=== PATIENT | male | born 1965 | race Caucasian/White ===

== ENCOUNTER 2016-12-21 10:44 | Outpatient (CLI) | payer MEDICAID ==
[~2016-12-21] VITALS: Ht 177.8 cm; Wt 102.5 kg
[2016-12-21] MEDS ORDERED: TRIAMCINOLONE ACET (KENALOG-40) 40 MG/ML 1 ML VIAL ONE (11:35)
[2016-12-21] MEDS ORDERED: LIDOCAINE 1% INJ 20 ML (XYLOCAINE) VIAL ONE (11:36)
[2016-12-21] MEDS ORDERED: BUPIVACAINE 0.25% 30 ML (SENSORCAINE) VIAL ONE (11:36)
[2016-12-21 11:47] VITALS: BP 156/98
[2016-12-21 12:21] VITALS: BP 155/95
--- NOTE | 2016-12-21 13:09 | Pain Medicine-Procedure ---
Procedure Pre-Op/Post-Op Diagnosis Diagnosis: disc disorder with radiculopathy, lumbar Indications for Operation low back pain Attending Surgeon Primo Procedure Date of Service: December 21, 2016 Procedure: Lumbar Epidural Steroid Injection at the L5-S1 level under Fluoroscopic Guidance Procedure: Patient was identified in the holding area. After risks, benefits, and alternatives were discussed with the patient, informed consent was obtained. Patient was brought to the fluoroscopy suite and placed prone on the procedure room table. A time out was performed. Vital signs were monitored throughout the procedure. The patients low back was prepped and draped in the usual sterile fashion. The patients skin was anesthetized using 2% Lidocaine. A Tuohy needle was inserted and advanced to the L5-S1 epidural space under fluoroscopic guidance using the loss of resistance technique and intermittent projection of fluoroscopy. There was no paresthesia with needle placement. The needle position was confirmed in both the AP and lateral view. After negative aspiration 2ml of contrast was injected under live fluoroscopy which showed good spread of the contrast in the epidural space at the appropriate level, there was no intravascular or subarachnoid spread. Again, after negative aspiration for heme or CSF, 2 ml of 0.25% Bupivicaine, 2ml of preservative free normal saline, and 80mg of Kenalog was injected. The needle was removed and a sterile bandage was placed and the patient was transferred to the recovery area in stable condition. After a brief period of observation, patient was discharged to home with no new neurological deficits and no apparent complications. Complications None ALFREDITO SOFIA MD December 21, 2016 1:09 pm
== END 2016-12-21 12:25 | disposition home or self-care (01) ==
LOC: CARD 10:44
PROVIDERS: ATTEND Pain Medicine Pain Medicine
DX: M51.16 Intervertebral disc disorders with radiculopathy, lumbar region (principal)
CPT/HCPCS: 62323

== ENCOUNTER → 2017-10-31 | Outpatient (CLI) | payer MEDICAID ==
[~2017-10-31] VITALS: Ht 179.1 cm; Wt 98.9 kg
[~2017-10-31] MED LIST: methylPREDNISolone 80 MG/ML (DEPO MEDROL) VIAL ONE
[2017-10-31 13:49] VITALS: BP 148/99
== END ==
LOC: CARD 13:33
PROVIDERS: ATTEND Pain Medicine Interventional Pain Medicine
DX: M54.16 Radiculopathy, lumbar region (principal); M54.12 Radiculopathy, cervical region; M47.812 Spondylosis without myelopathy or radiculopathy, cervical region
CPT/HCPCS: 62323

== ENCOUNTER 2019-05-11 11:49 | Inpatient (IN) | payer BC, MEDICAID ==
[~2019-05-11] VITALS: Ht 177.8 cm; Wt 94.0 kg
[2019-05-11] MEDS ORDERED: DILTIAZEM 25 MG/5 ML INJ (CARDIZEM) VIAL ONE (11:59)
[2019-05-11] MEDS ORDERED: NS IV 1000 ML 1,000 ML IV SCH (12:04)
[2019-05-11 12:15] LABS: BASOPHILS % (AUTO) 0 % (0-10); EOSINOPHILS # (AUTO) 0.1 10^3/uL (0.0-0.3); EOSINOPHILS % (AUTO) 1 % (0-10); HEMATOCRIT 45 % (40-54); HEMOGLOBIN 15.8 G/DL (13.3-17.7); LYMPHOCYTES # (AUTO) 1.7 X 10^3 (1.0-4.0); LYMPHOCYTES % (AUTO) 23 % (12-44); MEAN CORPUSCULAR HEMOGLOBIN 30 PG (25-34); MEAN CORPUSCULAR HGB CONC 35 G/DL (32-36); MEAN CORPUSCULAR VOLUME 87 FL (80-99); MEAN PLATELET VOLUME 10.1 FL (7.4-10.4); MONOCYTES # (AUTO) 0.7 X 10^3 (0.0-1.0); MONOCYTES % (AUTO) 9 % (0-12); NEUTROPHILS # (AUTO) 4.9 X 10^3 (1.8-7.8); NEUTROPHILS % (AUTO) 66 % (42-75); PLATELET COUNT 265 10^3/uL (130-400); RED CELL DISTRIBUTION WIDTH 13.5 % (10.0-14.5); WHITE BLOOD COUNT 7.4 10^3/uL (4.3-11.0)
[2019-05-11] MEDS ORDERED: DILTIAZEM 25 MG/5 ML INJ (CARDIZEM) VIAL IVP ONE (12:15)
--- NOTE | 2019-05-11 12:17 | ED Cardiac General ---
History of Present Illness General Chief Complaint: Cardiac/General Problems Stated Complaint: HEART RACING History of Present Illness Date Seen by Provider: May 11, 2019 Time Seen by Provider: 11:45 Initial Comments 53-year-old male reports heart racing since 05/07/19. He was seen by primary care provider Dr. Brownlee and sent to the emergency department today. He has a history of SVT requiring cardioversion approximately once a year for the last 2 years. He has a history of atrial fibrillation which was treated with ablation approximately 13 years ago. He does not see a peanut salter regularly. In October 2017, he was treated with Adenosine twice and had no change in SVT, he then was given Cardizem bolus, followed by Cardizem drip. Denies chest pain, pressure, nausea or vomiting. He has been continuing to work with the palpitations, construction. He has noted mild fatigue but no other complaints. His only medication is Cardizem 360 mg and aspirin 81 mg, which he did take this morning. Timing/Duration: 3-4 days Severity: moderate Location: central Activities at Onset: none ASA po RESEARCH AND DEVELOPMENT MANAGER: Yes (this am 81 mg. ) Associated Systoms: Denies Symptoms Allergies and Home Medications Allergies Coded Allergies: No Known Drug Allergies (Unverified , 05/11/19) Patient Home Medication List Home Medication List Reviewed: Yes Review of Systems Review of Systems Constitutional: no symptoms reported, see HPI Cardiovascular: See HPI; Denies Chest Pain, Denies Edema; Irregular Heart Rate; Denies Lightheadedness; Palpitations; Denies Syncope Gastrointestinal: See HPI; Denies Nausea, Denies Vomiting Skin: no symptoms reported, see HPI All Other Systems Reviewed Negative Unless Noted: Yes Past Zdgcegr-Ljasuy-Jpzkta Hx Past Med/Social Hx: Reviewed Nursing Past Med/Soc Hx Physical Exam Vital Signs Vital Signs - First Documented 05/11/19 12:00 Temp 37.0 Pulse 152 Resp 12 B/P (MAP) 136/98 (111) Pulse Ox 97 Capillary Refill : Height, Weight, BMI Height: 5'10.50" Weight: 218lbs. 0.0oz. [id number]; 30.8 BMI Method: General Appearance: No Apparent Distress, WD/WN HEENT: PERRL/EOMI, TMs Normal, Normal ENT Inspection, Pharynx Normal Neck: Full Range of Motion, Normal Inspection, Non Tender, Supple Respiratory: Chest Non Tender, Lungs Clear, Normal Breath Sounds Cardiovascular: No Edema, No JVD, No Murmur, Normal Peripheral Pulses, Tachycardia Gastrointestinal: Normal Bowel Sounds, Non Tender, Soft Neurologic/Psychiatric: Alert, Oriented x3, No Motor/Sensory Deficits, Normal Mood/Affect Skin: Normal Color, Warm/Dry Lymphatic: No Adenopathy Progress/Results/Core Measures Results/Orders Lab Results Laboratory Tests Test 05/11/19 12:06 Range/Units White Blood Count 7.4 4.3-11.0 10^3/uL Red Blood Count 5.19 4.35-5.85 10^6/uL Hemoglobin 15.8 13.3-17.7 G/DL Hematocrit 45 40-54 % Mean Corpuscular Volume 87 80-99 FL Mean Corpuscular Hemoglobin 30 25-34 PG Mean Corpuscular Hemoglobin Concent 35 32-36 G/DL Red Cell Distribution Width 13.5 10.0-14.5 % Platelet Count 265 130-400 10^3/uL Mean Platelet Volume 10.1 7.4-10.4 FL Neutrophils (%) (Auto) 66 42-75 % Lymphocytes (%) (Auto) 23 12-44 % Monocytes (%) (Auto) 9 0-12 % Eosinophils (%) (Auto) 1 0-10 % Basophils (%) (Auto) 0 0-10 % Neutrophils # (Auto) 4.9 1.8-7.8 X 10^3 Lymphocytes # (Auto) 1.7 1.0-4.0 X 10^3 Monocytes # (Auto) 0.7 0.0-1.0 X 10^3 Eosinophils # (Auto) 0.1 0.0-0.3 10^3/uL Basophils # (Auto) 0.0 0.0-0.1 10^3/uL Prothrombin Time 14.0 12.2-14.7 SEC INR Comment 1.0 0.8-1.4 Activated Partial Thromboplast Time 27 24-35 SEC Sodium Level 141 135-145 MMOL/L Potassium Level 4.0 3.6-5.0 MMOL/L Chloride Level 106 98-107 MMOL/L Carbon Dioxide Level 25 21-32 MMOL/L Anion Gap 10 5-14 MMOL/L Blood Urea Nitrogen 16 7-18 MG/DL Creatinine 0.80 0.60-1.30 MG/DL Estimat Glomerular Filtration Rate > 60 BUN/Creatinine Ratio 20 Glucose Level 144 H 70-105 MG/DL Calcium Level 9.6 8.5-10.1 MG/DL Corrected Calcium 9.4 8.5-10.1 MG/DL Total Bilirubin 0.5 0.1-1.0 MG/DL Aspartate Amino Transf (AST/SGOT) 34 5-34 U/L Alanine Aminotransferase (ALT/SGPT) 50 0-55 U/L Alkaline Phosphatase 83 40-136 U/L Troponin I < 0.028 <0.028 NG/ML Total Protein 8.1 6.4-8.2 GM/DL Albumin 4.3 3.2-4.5 GM/DL My Orders Orders - JALIL RAMOS Diltiazem Injection (Cardizem Injection) (05/11/19 11:59) Cbc With Automated Diff (05/11/19 12:03) Comprehensive Metabolic Panel (05/11/19 12:03) Protime With Inr (05/11/19 12:03) Partial Thromboplastin Time (05/11/19 12:03) Troponin I (05/11/19 12:03) Diltiazem Injection (Cardizem Injection) (05/11/19 12:15) Ed Iv/Invasive Line Start (05/11/19 12:04) Ns Iv 1000 Ml (Sodium Chloride 0.9%) (05/11/19 12:04) Ekg Tracing (05/11/19 12:04) Continuous Ekg Monitoring (05/11/19 12:04) Ekg Tracing (05/11/19 12:31) Medications Given in ED Current Medications Medications Dose Ordered Sig/Lily Route Start Time Stop Time Status Last Admin Dose Admin Diltiazem HCl 10 mg ONCE ONCE IVP 05/11/19 12:15 05/11/19 12:16 DC 05/11/19 12:12 10 MG Vital Signs/I&O 05/11/19 12:00 Temp 37.0 Pulse 152 Resp 12 B/P (MAP) 136/98 (111) Pulse Ox 97 Progress Progress Note : Time: 11:45 Progress Note Patient seen and evaluated, reviewed admission from [facility] 10/2017. Will obtain EKG, Labs, IV Access and plan Cardizem 10 mg IV, then re-evaluate. 1200 within 7 min of Cardizem 10 mg IV, patient converted to Sinus rhythm at 60- 80. 1230 patient is continuing in sinus rhythm, no palpitations. [address] Posada, agreed with recommendation for admission, will get echocardiogram before starting anticoagulants. Discussed EKG, initial pre sentation EKG showed wide-complex tachycardia. 1315 patient continuing in sinus rhythm, he agreed with recommendation for admis salma. Will continue to monitor. 1330 patient admitted to cardiac stepdown, no further SVT or atrial flutter. Patient denies any complaints. Initial ECG Impression Date: May 11, 2019 Initial ECG Impression Time: 11:51 Initial ECG Rate: 152 Initial ECG Rhythm: S.Tach, SVT Initial ECG Intervals: Normal Initial ECG Intervals QRS 140, QT 348, QTC 554. Garibaldi P 0, QRS -50, T 110. Initial ECG Impression: Normal, SVT Initial ECG Comparisson: Unchanged Comment Reviewed with Dr. Barrios, agreed with interpretation EKG : EKG Time: 12:43 Rate: 63 Rhythm: Normal Sinus Intervals: Normal Intervals ND 184, QRSD 98, QT 444, QTc 455. Garibaldi P 34, QRS -3, T 4. ECG Comparisson: Changed ECG Impression: Normal Comment Reviewed with Dr. Posada Departure Impression Primary Impression: SVT (supraventricular tachycardia) Disposition: 09 ADMITTED INPATIENT Condition: Stable Admissions Decision to Admit Reason: Admit from ER (General) Decision to Admit/Date: May 11, 2019 Time/Decision to Admit Time: 13:15 Departure-Patient Inst. Referrals: JOHN BROWNLEE MD (PCP/Family) Primary Care Physician Copy Copies To 1: JOHN BROWNLEE MD, AMY ARNP May 11, 2019 12:17
[2019-05-11 12:35] LABS: ALANINE AMINOTRANSFERASE 50 U/L (0-55); ALBUMIN 4.3 GM/DL (3.2-4.5); ALKALINE PHOSPHATASE 83 U/L (40-136); BILIRUBIN,TOTAL 0.5 MG/DL (0.1-1.0); BUN/CREATININE RATIO 20; CALCIUM 9.6 MG/DL (8.5-10.1); CARBON DIOXIDE 25 MMOL/L (21-32); CHLORIDE 106 MMOL/L (98-107); GFR ESTIMATED > 60; GLUCOSE 144 MG/DL (70-105); SODIUM 141 MMOL/L (135-145); TOTAL PROTEIN 8.1 GM/DL (6.4-8.2)
--- NOTE | 2019-05-11 14:08 | NUR ---
PT ARRIVED AND PLACED ON TELEMETRY. VITALS ARE OBTAINED. PT IS AMBULATORY IN THE ROOM. SUSTAINABILITY PROJECT COORDINATOR SHOWS NSR IN THE 60-70'S. PT STATES THAT HE CAN FEEL WHEN HIS HEART RATE IS HIGH IN HIS THROAT/UPPER CHEST AREA AND SOMETIMES GETS DIZZY. STATES THIS STARTED ON SATURDAY OF LAST WEEK. PT DENIES ANY CONCERNS AT THIS TIME.
[2019-05-11] MEDS ORDERED: NS IV 1000 ML 1,000 ML ONE (14:17)
[2019-05-11 14:31] VITALS: BP 130/83
--- NOTE | 2019-05-11 15:03 | Consultation-Cardiology ---
HPI-Cardiology Cardiology Consultation: Date of Consultation 05/11/19 Date of Admission Attending Physician Sweta Rebolledo MD Admitting Physician Wilfredo Davis MD Consulting Physician Vernon POSADA MD HPI: Time Seen by a Provider: 15:02 Chief Complaint: Palpitations This is a 53-year-old gentleman who presented to the ER with complains of palpitation for the last 3 days. He was seen by Dr. Davis his primary care physician and when sent to the ER. According to the patient, he has history of SVT, atrial fibrillation. The patient is on Cardizem 360 mg and aspirin 81 mg. According to the patient in October 2017 he had a similar episode which was not treated with adenosine and required Cardizem. The patient denies any other cardiac symptoms. Review of Systems-Cardiology Review of Systems Constitutional: As described under HPI; No As described under HPI, No no symptoms reported, No chills, No fever, No lightheadedness Eyes: No As described under HPI, No no symptoms reported, No blindness, No blurred vision, No contact lenses, No drainage, No decreased acuity, No foreign body sensation, No pain, No vision change Ears/Nose/Throat: No As described under HPI, No no symptoms reported, No chronic hearing loss, No ear discharge, No ear pain, No nasal drainage, No ulcerations Respiratory: No no symptoms reported; As described under HPI; No As described under HPI, No cough, No orthopnea, No shortness of breath, No SOB with excertion Cardiovascular: No no symptoms reported; As described under HPI; No As described under HPI, No chest pain, No edema, No irregular heart rate, No lightheadedness; palpitations Gastrointestinal: No no symptoms reported, No As described under HPI, No abdomen distended, No abdominal pain, No blood streaked bowels, No constipation, No diarrhea, No nausea, No vomiting, No stool coloration changes Genitourinary: No As described under HPI, No burning, No dysuria, No discharge, No frequency, No flank pain, No hematuria, No urgency Skin: No rash, No skin related problems, No ulcerations Psychiatric/Neurological: No anxiety, No depression, No seizure, No focal weakness, No syncope Hematologic: No bleeding abnormalities All Other Systems Reviewed Negative Unless Noted: Yes [id number]-Qgbkaz Hx Patient Social History Recent Foreign Travel: No Recent Infectious Disease Expo: No Hospitalization with Isolation: Denies Past Medical History PMH As described under Assessment. Family Medical History Family History: Cardiovascular disease 19 FATHER Completed stroke 19 MOTHER Neoplasm 19 MOTHER Allergies and Home Medications Allergies Coded Allergies: No Known Drug Allergies (Unverified , 05/11/19) Home Medications Amlodipine Besylate 2.5 Mg Tablet, 2.5 MG PO DAILY, (Reported) Ascorbate Calcium 500 Mg Tablet, 500 MG PO DAILY, (Reported) Aspirin 81 Mg Tablet.dr, 81 MG PO DAILY, (Reported) Cyclobenzaprine HCl 10 Mg Tablet, 10 MG PO TID PRN for MUSCLE SPASMS, (Reported) Diltiazem HCl 360 Mg Cap.er.24h, 360 MG PO DAILY, (Reported) Lactobacillus Acidophilus 1 Each Capsule, 1 CAP PO DAILY, (Reported) Multivitamin 1 Each Tablet, 1 TAB PO DAILY, (Reported) Turmeric Root Extract 538 Mg Capsule, 538 MG PO DAILY, (Reported) Vitamin B Complex 1 Each Capsule, 1 CAP PO DAILY, (Reported) [Cbd Oil] , PO DAILY, (Reported) Patient Home Medication List Home Medication List Reviewed: Yes Physical Exam-Cardiology Physical Exam Vital Signs/I&O 05/12/19 05/12/19 05/12/19 05/12/19 02:30 03:30 04:00 04:30 Temp 36.2 Pulse 56 59 55 Resp 18 18 18 B/P (MAP) 111/74 (86) 113/70 (84) 117/74 (88) Pulse Ox 97 92 95 92 O2 Delivery Room Air Room Air Room Air Room Air 05/12/19 05/12/19 05/12/19 05/12/19 05:30 06:30 07:00 07:00 Pulse 60 55 53 55 Resp 20 18 18 B/P (MAP) 111/69 (83) 129/82 (98) 129/84 (99) Pulse Ox 96 95 95 O2 Delivery Room Air Room Air Room Air 05/12/19 05/12/19 05/12/19 05/12/19 08:00 08:00 09:00 09:00 Temp 36.3 Pulse 69 60 Resp 16 18 B/P (MAP) 141/83 (102) 125/83 (97) Pulse Ox 95 98 96 96 O2 Delivery Room Air Room Air Room Air Room Air 05/12/19 05/12/19 05/12/19/1/19 09:50 11:00 11:23 11:53 Temp 36.7 Pulse 69 64 67 Resp 16 18 16 B/P (MAP) 136/91 (106) 121/75 (90) 135/81 (99) Pulse Ox 96 97 95 97 O2 Delivery Room Air Room Air Room Air Room Air 05/12/19 12:15 Pulse 58 05/12/19 00:00 Intake Total 450 ml Balance 450 ml Capillary Refill : Less Than 3 Seconds Constitutional: appears stated age, AAO x 3; No apparent distress; well- developed, well-nourished HEENT: PERRL; No discharge; hearing is well preserved, oral hygience is good; No ulceration, No xanthelasmas are seen Neck: No carotid bruit; carotid pulses are 2 + bilaterally Respiratory: chest is bilaterally symmetric, lungs clear to auscultation Cardiovascular: regular rate-rhythm, S1 and S2 Gastrointestinal: soft, round, audible bowel sounds; No spleenomegaly Rectal: deferred Extremities: normal range of motion, non-tender, normal inspection; No clubbing, No cyanosis; no lower extremity edema bilateral; No significant edema Neurologic/Psychiatric: no motor/sensory deficits, alert, normal mood/affect, oriented x 3, power is 5/5 both on sides Skin: normal color, warm/dry; No rash, No ulcerations Data Review Labs Laboratory Tests 05/11/19 16:20: Troponin I < 0.028 05/12/19 04:01: Troponin I < 0.028, White Blood Count 6.7, Red Blood Count 4.41, Hemoglobin 13.6, Hematocrit 39L, Mean Corpuscular Volume 89, Mean Corpuscular Hemoglobin 31, Mean Corpuscular Hemoglobin Concent 35, Red Cell Distribution Width 13.1, Platelet Count 196, Mean Platelet Volume 9.8, Neutrophils (%) (Auto) 55, Lymphocytes (%) (Auto) 31, Monocytes (%) (Auto) 11, Eosinophils (%) (Auto) 3, Basophils (%) (Auto) 0, Neutrophils # (Auto) 3.7, Lymphocytes # (Auto) 2.1, Monocytes # (Auto) 0.7, Eosinophils # (Auto) 0.2, Basophils # (Auto) 0.0, Sodium Level 141, Potassium Level 3.7, Chloride Level 107, Carbon Dioxide Level 24, Anion Gap 10, Blood Urea Nitrogen 11, Creatinine 0.74, Estimat Glomerular Filtration Rate > 60, BUN/Creatinine Ratio 15, Glucose Level 107H, Calcium Level 8.5, Corrected Calcium 8.7, Magnesium Level 2.0, Total Bilirubin 0.3, Aspartate Amino Transf (AST/SGOT) 24, Alanine Aminotransferase (ALT/SGPT) 34, Alkaline Phosphatase 82, Total Protein 6.1L, Albumin 3.7 ECG Impression ECG Comment Sustained monomorphic ventricular tachycardia, left bundle branch pattern with inferior origin. A/P-Cardiology Assessment/Admission Diagnosis Sustained monomorphic ventricular tachycardia without hemodynamic compromise, History of atrial fibrillation, History of SVT. Plan Rule out CAD with serial troponin. Echocardiogram. Likely coronary angiography. History of atrial fibrillation, continue Cardizem for now with aspirin. SVT with aberrant conduction cannot be completely ruled out. Thank you for your consultation. Please call me if you have any questions. Georgia Posada MD, FACP, FACC, FSCAI, FHRS, CCDS Interventional Cardiology Cardiac Electrophysiology Vascular Medicine and Endovascular Interventions Clinical Quality Measures AMI/AHF: ASA po Prior to arrival: Yes (this am 81 mg. ) DVT/VTE Risk/Contraindication: RFS Level Per Nursing on Admit: 0=No Risk/No VTE PPX Vernon POSADA MD May 11, 2019 15:03
[2019-05-11] MEDS ORDERED: ONDANSETRON 4 MG/2 ML (SDV) Z0FRAN IV PRN (15:30)
[2019-05-11] MEDS ORDERED: ACETAMINOPHEN 325 MG TABLET PO PRN (15:30)
[2019-05-11] MEDS ORDERED: CATHETER FLUSH 10 ML SYR IV PRN (15:30)
[2019-05-11] MEDS: NS IV 1000 ML 1,000 ML IV SCH (15:36)
--- NOTE | 2019-05-11 16:00 | NUR ---
DR BENITES AT BEDSIDE. ORDERS FOR TROPONIN THREE HOURS AFTER INITIAL AND IN THE MORNING. ECHO JUST COMPLETED. ATTEMPTING TO OBTAIN RECORDS FROM [facility] OR [facility] FROM PRIOR CARDIAC PROCEDURE. PT IS UNCLEAR ON WHERE OR WHAT PROCEDURE.
[2019-05-11 16:11] VITALS: BP 125/78
--- NOTE | 2019-05-11 16:43 | NUR ---
PER PATIENT , PT HAD PROCEDURE AT THE [facility] IN [place] PRIOR TO THE [facility]. PT SIGNED A RELEASE OF RECORDS AND IT WAS FAXED TO [phone] TO [facility].
[2019-05-11] MEDS ORDERED: ONDANSETRON 4 MG (ZOFRAN) ORAL DISSOLVE TAB PO PRN (18:45)
[2019-05-11] MEDS ORDERED: POLYETHYLENE GLYCOL 17 GM (MIRALAX) PACK PO PRN (18:45)
[2019-05-11] MEDS ORDERED: MELATONIN 3 MG TABLET PO PRN (18:45)
[2019-05-11] MEDS ORDERED: diphenhydrAMINE 25 MG TAB (BENADRYL) PO PRN (18:45)
--- NOTE | 2019-05-11 19:49 | NUR ---
1948: THIS NURSE NOTIFIED DR BENITES PT WAS HAVING RUNS OF WIDE COMPLEX TACH WITH A HEART RATE IN THE 130S THAT WOULD LAST ABOUT 1 MINUTE. THIS NURSE SENT DR BENITES PICTURES OF THE ECG STRIPES. NURSE ALSO TOLD THE DR THAT THE PT FEELS HIS HEART RACING AND HE FEELS DIZZY WHEN HIS HEART IS RACING. BP HAS BEEN STABLE. NURSE WAS INSTRUCTED TO GET PT BP WHILE PT WAS IN A RUN OF TACH. 2226: DR BENITES ORDERED A AMIODARONE BOLUS X1 AND TO START AN AMIODARONE DRIP. NURSE NOTIFIED DR BENITES THAT PT HAS NOT HAD A RUN SINCE ABOUT 1999.
[2019-05-11 20:00] VITALS: BP 148/89
[2019-05-11] MEDS: DOCUSATE SODIUM 100 MG (COLACE) CAP PO SCH (21:25)
[2019-05-11] MEDS: SENNA W/DOCUSATE (SENOKOT S) TABLET PO SCH (21:26)
[2019-05-11] MEDS ORDERED: AMIODARONE FOR BOLUS 150 MG in D5W 100 ML IVPB 100 ML IV ONE (23:00)
[2019-05-11] MEDS ORDERED: D5W 100 ML IVPB 100 ML IV ONE (23:05)
[2019-05-11] MEDS ORDERED: AMIODARONE (OMNICELL DRIP KIT) 150 MG/3 ML IV ONE (23:06)
[2019-05-11] MEDS ORDERED: AMIODARONE 450 MG/9 ML (CORDARONE) VIAL IV ONE (23:09)
[2019-05-11] MEDS ORDERED: D5W IV SOLUTION (EXCEL) 250 ML IV ONE (23:10)
[2019-05-11 23:30] VITALS: BP 118/71
[2019-05-11] MEDS: AMIODARONE INJECTION 450 MG in D5W IV SOLUTION (EXCEL) 250 ML IV SCH (23:31)
[2019-05-12] VITALS (21 sets, daily range): BP systolic 111–149; BP diastolic 69–97
[2019-05-12 04:07] LABS: BASOPHILS % (AUTO) 0 % (0-10); EOSINOPHILS # (AUTO) 0.2 10^3/uL (0.0-0.3); EOSINOPHILS % (AUTO) 3 % (0-10); HEMATOCRIT 39 % (40-54); HEMOGLOBIN 13.6 G/DL (13.3-17.7); LYMPHOCYTES # (AUTO) 2.1 X 10^3 (1.0-4.0); LYMPHOCYTES % (AUTO) 31 % (12-44); MEAN CORPUSCULAR HEMOGLOBIN 31 PG (25-34); MEAN CORPUSCULAR HGB CONC 35 G/DL (32-36); MEAN CORPUSCULAR VOLUME 89 FL (80-99); MEAN PLATELET VOLUME 9.8 FL (7.4-10.4); MONOCYTES # (AUTO) 0.7 X 10^3 (0.0-1.0); MONOCYTES % (AUTO) 11 % (0-12); NEUTROPHILS # (AUTO) 3.7 X 10^3 (1.8-7.8); NEUTROPHILS % (AUTO) 55 % (42-75); PLATELET COUNT 196 10^3/uL (130-400); RED CELL DISTRIBUTION WIDTH 13.1 % (10.0-14.5); WHITE BLOOD COUNT 6.7 10^3/uL (4.3-11.0)
[2019-05-12 04:25] LABS: ALANINE AMINOTRANSFERASE 34 U/L (0-55); ALBUMIN 3.7 GM/DL (3.2-4.5); ALKALINE PHOSPHATASE 82 U/L (40-136); BILIRUBIN,TOTAL 0.3 MG/DL (0.1-1.0); BUN/CREATININE RATIO 15; CALCIUM 8.5 MG/DL (8.5-10.1); CARBON DIOXIDE 24 MMOL/L (21-32); CHLORIDE 107 MMOL/L (98-107); CREATININE SERUM 0.74 MG/DL (0.60-1.30); GFR ESTIMATED > 60; GLUCOSE 107 MG/DL (70-105); POTASSIUM 3.7 MMOL/L (3.6-5.0); SODIUM 141 MMOL/L (135-145); TOTAL PROTEIN 6.1 GM/DL (6.4-8.2)
[2019-05-12] MEDS: AMIODARONE INJECTION 450 MG in D5W IV SOLUTION (EXCEL) 250 ML IV SCH (07:41)
[2019-05-12] MEDS: DOCUSATE SODIUM 100 MG (COLACE) CAP PO SCH ×2 (08:14→20:33)
[2019-05-12] MEDS: SENNA W/DOCUSATE (SENOKOT S) TABLET PO SCH ×2 (08:14→20:34)
[2019-05-12] MEDS ORDERED: LACT1CAP62 PO (10:21)
[2019-05-12] MEDS ORDERED: CYCL10TA9 PO (10:21)
[2019-05-12] MEDS ORDERED: DILT360C36 PO (10:21)
[2019-05-12] MEDS ORDERED: ASCO-262 PO (10:21)
[2019-05-12] MEDS ORDERED: MULT1TAB69 PO (10:21)
[2019-05-12] MEDS ORDERED: AMLO2.5T4 PO (10:21)
[2019-05-12] MEDS ORDERED: VITA1CAP PO (10:21)
[2019-05-12] MEDS ORDERED: ASPI-983 PO (10:21)
[2019-05-12] MEDS ORDERED: TURM538C PO (10:21)
[2019-05-12] MEDS ORDERED: CBD OIL PO (10:21)
--- NOTE | 2019-05-12 10:22 | NUR ---
SPOKE WITH THE PATIENT ABOUT HIS MEDICATIONS. HE LISTED WHAT HE TAKES AND HIS OTC MEDS. OTC MEDS: MTV DAILY VITAMIN C DAILY TURMERIC DAILY PROBIOTIC DAILY ASPIRIN 81MG DAILY B COMPLEX DAILY CBD OIL
[2019-05-12] MEDS ORDERED: LIDOCAINE 1% INJ 20 ML 20 ML VIAL ONE (11:22)
[2019-05-12] MEDS ORDERED: HEParin (CATH LAB) 2,000 ML IV ONE (11:22)
[2019-05-12] MEDS: NS IV 1000 ML 1,000 ML IV SCH ×4 (11:45→22:19)
[2019-05-12] MEDS ORDERED: MIDAZOLAM 5 MG/5 ML (VERSED) VIAL ONE (12:10)
[2019-05-12] MEDS ORDERED: fentaNYL INJECTION 100 MCG/2 ML AMP ONE (12:10)
[2019-05-12] MEDS ORDERED: NS IV 1000 ML 1,000 ML ONE (12:24)
[2019-05-12] MEDS ORDERED: VERAPAMIL 5 MG/2 ML (CALAN) VIAL IV ONE (12:46)
[2019-05-12] MEDS ORDERED: NITRO DRIP 25000 MCG/D5W 250 ML IV ONE (12:46)
[2019-05-12] MEDS ORDERED: HEParin 1000 UNIT/ML (10ML VIAL) FOR BOLUS ONE (12:46)
--- NOTE | 2019-05-12 13:09 | History & Physical-Hospitalist ---
History of Present Illness HPI/Chief Complaint Wilfredo Mckenna is a 53yoM with PMH HTN, SVT, who presented with palpitations and was admitted with supraventricular tachycardia. He was initially given a bolus of cardizem and he converted to normal sinus rhythm. He reports that he was able to feel his heart racing. He denies chest pain and dyspnea. He denies abdominal pain, nausea, vomting, diarrhea, dysuria. He denies recent illness. He reports compliance with his medications. Source: patient Exam Limitations: no limitations Date Seen 05/12/19 Time Seen by a Provider: 08:30 Attending Physician Ede Martinez MD PCP Wilfredo Davis MD Referring Physician Date of Admission May 11, 2019 at 13:31 Home Medications & Allergies Home Medications Reviewed patient Home Medication Reconciliation performed by pharmacy medication reconciliations equipment engineering technician and/or nursing. Patients Allergies have been reviewed. Allergies Allergies Coded Allergies No Known Drug Allergies (Unverified05/11/19) Past Hmqodtg-Fzylwb-Rjpmzt Hx Past Med/Social Hx: Reviewed Nursing Past Med/Soc Hx Patient Social History Recent Foreign Travel: No Contact w/other who traveled: No Recent Hopitalizations: No Recent Infectious Disease Expo: No Seasonal Allergies Seasonal Allergies: No Family History Cardiovascular disease 19 FATHER Completed stroke 19 MOTHER Neoplasm 19 MOTHER Review of Systems Constitutional: no symptoms reported, see HPI EENTM: no symptoms reported Respiratory: no symptoms reported Cardiovascular: No chest pain; palpitations Gastrointestinal: no symptoms reported Genitourinary: no symptoms reported Musculoskeletal: no symptoms reported Skin: no symptoms reported Psychiatric/Neurological: No Symptoms Reported Physical Exam Physical Exam Vital Signs Vital Signs - First Documented 05/11/19 05/11/19 12:00 14:08 Temp 37.0 Pulse 152 Resp 12 B/P (MAP) 136/98 (111) Pulse Ox 97 O2 Delivery Room Air Capillary Refill : Less Than 3 Seconds Height, Weight, BMI Height: 5'10.50" Weight: 218lbs. 0.0oz. 98.072437wj; 30.20 BMI Method: General Appearance: No Apparent Distress, WD/WN HEENT: PERRL/EOMI, Pharynx Normal Neck: Normal Inspection, Supple Respiratory: Lungs Clear, Normal Breath Sounds, No Respiratory Distress Cardiovascular: Regular Rate, Rhythm, No Edema, No Murmur Gastrointestinal: Normal Bowel Sounds, Non Tender, Soft Extremity: Normal Inspection, Non Tender, No Pedal Edema Neurologic/Psychiatric: Alert, Oriented x3, No Motor/Sensory Deficits, Normal Mood/Affect Skin: Normal Color, Warm/Dry Lymphatic: No Adenopathy Results Results/Procedures Labs Laboratory Tests 05/11/19 12:06 05/12/19 04:01 Patient resulted labs reviewed. Assessment/Plan Admission Diagnosis SVT Admission Status: Inpatient Order (span 2 midnights) Reason for Inpatient Admission: HTN Assessment and Plan SVT HTN -Presented with HR >150 -Started on Cardizem, converted to NSR -Issues with intermittent tachycardia overnight, started on Amiodarone gtt -Cardiology consulted, appreciate recommendations -NPO for possible procedure -Hold home antihypertensives for now Diagnosis/Problems Diagnosis/Problems (1) SVT (supraventricular tachycardia) Status: Acute Clinical Quality Measures AMI/AHF: ASA po Prior to arrival: Yes (this am 81 mg. ) DVT/VTE Risk/Contraindication: RFS Level Per Nursing on Admit: 0=No Risk/No VTE PPX EDE MARTINEZ MD May 12, 2019 13:09
--- NOTE | 2019-05-12 13:23 | Cardiac Procedure Note-CS/ASA ---
Pre-Procedure Note Pre-Op Procedure Note H&P Reviewed The H&P was reviewed, patient examined and no changes noted. Date H&P Reviewed: May 12, 2019 Time H&P Reviewed: 11:00 Conscious Sedation Pre-Proced Time 11:00 ASA Score 3 For ASA 3 and 4: Consider anesthesia and medical clearance. Also, for patients with a history of failed moderate sedation consider anesthesia. Airway Lungs Heart ASA score ASA 1: a normal healthy patient ASA 2: a patient with a mild systemic disease (mid diabetes, controlled hypertension, obesity ASA 3: a patient with a severe systemic disease that limits activity (angina, COPD, prior Myocardial infarction) ASA 4: a patient with an incapacitating disease that is a constant threat to life (CHF, renal failure) ASA 5: a moribund patient not expected to survive 24 hrs. (ruptured aneurysm) ASA 6: a declared brain- patient whose organs are being harvested. For emergent operations, add the letter E after the classification Mallampati Classification Grade 1 Sedation Plan Analgesia, Amnesia, Plan communicated to team members, Discussed options with patient/fam, Discussed risks with patient/fam The patient is an appropriate candidate to undergo the planned procedure, sedation, and anesthesia. The patient immediately re-assessed prior to indication. Vernon BENITES MD May 12, 2019 13:23
[2019-05-12] MEDS ORDERED: meTOproloL SUCCINATE 50 MG (TOPROL XL) TAB PO SCH ×2 (13:30→21:00)
[2019-05-12] MEDS ORDERED: PATIENT MAY USE OWN MEDS, ALL PO SCH (13:30)
--- NOTE | 2019-05-12 13:37 | Coronary Angiography Report ---
Coronary Angiography Report DATE OF PROCEDURE: 05/12/19 INDICATION: Sustained monomorphic ventricular tachycardia. PREOPERATIVE DIAGNOSIS: Sustained monomorphic ventricular tachycardia. POSTOPERATIVE DIAGNOSIS: Patent epicardial coronary arteries. HISTORY: This is a 53-year-old gentleman who presented with sustained monomorphic ventricular tachycardia without syncope or hemodynamic compromise. Patient converted to sinus rhythm with Cardizem. Echocardiogram showed normal LV and RV size and function. CAD needs to be ruled out. Therefore, the patient was scheduled for coronary angiography. PROCEDURES PERFORMED: 1.Coronary angiography. 2.Left heart catheterization. COMPLICATIONS: None. SPECIMENS: None. ESTIMATED BLOOD LOSS: 10 mL ANESTHESIA: Conscious sedation ANTICOAGULATION: IV heparin CONTRAST: FLUOROSCOPY: FLOUROSCOPY DOSE: PROCEDURE DETAILS: The patient is a 53 male and was brought to the chemistry laboratory technician after informed consent was taken. All the risks and complications were explained in detail; this included the risk of bleeding, vascular damage, stroke, PA and even . The patient was draped and prepped in the usual sterile fashion. Access was gained in the right radial artery with a 6 [place] sheath. Coronary angiography and left heart catheterization was performed with the Independence catheter. FINDINGS: 1.Left main: Patent. 2.LAD: Patent. 3.Left circumflex artery: Patent. 4.RCA: Patent. 5.Left heart catheterization: LV pressure 115/7 mmHg. LVEDP 15 mmHg. Aortic pressure 114/70 mmHg. Normal LV function with no wall motion abnormalities. No gradient across the aortic valve. CONCLUSIONS: Sustained monomorphic went to her tachycardia without hemodynamic compromise. ICD is not recommended. Event monitor and cardiac MRI. Continue amiodarone, add beta blockers. May require EP study and possible ablation in the future. Georgia Posada MD, FACP, FACC, [facility] Interventional Cardiology Vernon POSADA MD May 12, 2019 13:37
--- NOTE | 2019-05-12 14:06 | Cardiology Progress Note ---
Cardiology SOAP Progress Note Subjective: Overnight the patient had runs of wide complex tachycardia again. Associated with dizziness but normal blood pressure. Objective: I&O/Vital Signs 05/12/19 05/12/19 05/12/19 05/12/19 02:30 03:30 04:00 04:30 Temp 36.2 Pulse 56 59 55 Resp 18 18 18 B/P (MAP) 111/74 (86) 113/70 (84) 117/74 (88) Pulse Ox 97 92 95 92 O2 Delivery Room Air Room Air Room Air Room Air 05/12/19 05/12/19 05/12/19 05/12/19 05:30 06:30 07:00 07:00 Pulse 60 55 53 55 Resp 20 18 18 B/P (MAP) 111/69 (83) 129/82 (98) 129/84 (99) Pulse Ox 96 95 95 O2 Delivery Room Air Room Air Room Air 05/12/19 05/12/19 05/12/19 05/12/19 08:00 08:00 09:00 09:00 Temp 36.3 Pulse 69 60 Resp 16 18 B/P (MAP) 141/83 (102) 125/83 (97) Pulse Ox 95 98 96 96 O2 Delivery Room Air Room Air Room Air Room Air 05/12/19 05/12/19 05/12/19 05/12/19 09:50 11:00 11:23 11:53 Temp 36.7 Pulse 69 64 67 Resp 16 18 16 B/P (MAP) 136/91 (106) 121/75 (90) 135/81 (99) Pulse Ox 96 97 95 97 O2 Delivery Room Air Room Air Room Air Room Air 05/12/19 12:15 Pulse 58 05/12/19 00:00 Intake Total 450 ml Balance 450 ml Weight (Pounds): 218 Weight (Ounces): 0.0 Weight (Calculated Kilograms): 98.620231 Constitutional: appears stated age, AAO x 3; No apparent distress; well- developed, well-nourished Respiratory: chest is bilaterally symmetric, lungs clear to auscultation Cardiovascular: regular rate-rhythm, S1 and S2 Gastrointestional: soft, round, audible bowel sounds; No spleenomegaly Extremities: normal range of motion, non-tender, normal inspection; No clubbing, No cyanosis; no lower extremity edema bilateral; No significant edema Neurologic/Psychiatric: no motor/sensory deficits, alert, normal mood/affect, oriented x 3, power is 5/5 both on sides Skin: normal color, warm/dry; No rash, No ulcerations Results/Procedures: Labs Laboratory Tests 05/11/19 16:20: Troponin I < 0.028 05/12/19 04:01: Troponin I < 0.028, White Blood Count 6.7, Red Blood Count 4.41, Hemoglobin 13.6, Hematocrit 39L, Mean Corpuscular Volume 89, Mean Corpuscular Hemoglobin 31, Mean Corpuscular Hemoglobin Concent 35, Red Cell Distribution Width 13.1, Platelet Count 196, Mean Platelet Volume 9.8, Neutrophils (%) (Auto) 55, Lymphocytes (%) (Auto) 31, Monocytes (%) (Auto) 11, Eosinophils (%) (Auto) 3, Basophils (%) (Auto) 0, Neutrophils # (Auto) 3.7, Lymphocytes # (Auto) 2.1, Rice cytes # (Auto) 0.7, Eosinophils # (Auto) 0.2, Basophils # (Auto) 0.0, Sodium Level 141, Potassium Level 3.7, Chloride Level 107, Carbon Dioxide Level 24, Anion Gap 10, Blood Urea Nitrogen 11, Creatinine 0.74, Estimat Glomerular Filtration Rate > 60, BUN/Creatinine Ratio 15, Glucose Level 107H, Calcium Level 8.5, Corrected Calcium 8.7, Magnesium Level 2.0, Total Bilirubin 0.3, Aspartate Amino Transf (AST/SGOT) 24, Alanine Aminotransferase (ALT/SGPT) 34, Alkaline Phosphatase 82, Total Protein 6.1L, Albumin 3.7 A/P: Assessment/Dx: Sustained monomorphic ventricular tachycardia without hemodynamic compromise, History of atrial fibrillation, History of SVT. Plan: Negative serial troponin. Coronary angiography done today shows normal LV function with no CAD. Echocardiogram done 05/11/2019 showed normal LV and RV size and function. He was started on IV amiodarone overnight which resulted in significant improvement in wide complex tachycardia. Otherwise he was having numerous episodes. Longest episode was for 3 minutes. We will also change Car dizem to metoprolol. He will require cardiac MRI and an event monitor as an outpatient. History of atrial fibrillation, change Cardizem to metoprolol. Full dose aspirin. SVT with aberrant conduction cannot be completely ruled out. Thank you for your consultation. Please call me if you have any questions. Georgia Posada MD, FACP, FACC, FSCAI, FHRS, CCDS Interventional Cardiology Cardiac Electrophysiology Vascular Medicine and Endovascular Interventions Clinical Quality Measures AMI/AHF: ASA po Prior to arrival: Yes (this am 81 mg. ) Vernon POSADA MD May 12, 2019 14:06
[2019-05-12] MEDS: AMIODARONE 200 MG (CORDARONE) TAB PO SCH (22:18)
[2019-05-13 00:30] VITALS: BP 116/69
[2019-05-13 04:00] VITALS: BP 124/77
[2019-05-13 08:00] VITALS: BP 155/94
[2019-05-13] MEDS: AMIODARONE 200 MG (CORDARONE) TAB PO SCH (08:14)
[2019-05-13] MEDS: DOCUSATE SODIUM 100 MG (COLACE) CAP PO SCH ×2 (08:14→08:22)
[2019-05-13] MEDS: SENNA W/DOCUSATE (SENOKOT S) TABLET PO SCH ×2 (08:14→08:22)
[2019-05-13] MEDS: NS IV 1000 ML 1,000 ML IV SCH (08:21)
[2019-05-13] MEDS ORDERED: meTOprolol TARTRATE 50 MG (LOPRESSOR) TAB PO SCH (09:00)
[2019-05-13] MEDS ORDERED: AMIO200T4 PO (09:57)
[2019-05-13] MEDS ORDERED: METO50TA15 PO (09:57)
--- NOTE | 2019-05-13 09:59 | Discharge Instructions ---
Discharge Instructions Reconcile Patient Problems Problems Reviewed?: Yes Discharge Medications New, Converted or Re-Newed RX: Transmitted to Pharmacy Patient Instructions Patient Instructions Take medications as prescribed. Follow up with Dr. Posada. [facility] to [facility] For: chest pain, shortness of breath, lightheadedness/dizziness, or if you feel like you are getting worse. Activity & Diet Discharge Diet: No Restrictions Activity as Tolerated: Yes EDE MARTINEZ MD May 13, 2019 09:59
--- NOTE | 2019-05-13 10:58 | NUR ---
Dc in good condition. Taken by w/c to registration for event monitor to be placed.
--- NOTE | 2019-05-13 12:53 | Cardiology Progress Note ---
Cardiology SOAP Progress Note Subjective: No palpitations. Objective: I&O/Vital Signs 05/13/19 05/13/19 05/13/19 05/13/19 01:00 04:00 04:01 07:00 Temp 36.6 Pulse 56 56 52 Resp 18 B/P (MAP) 124/77 (93) Pulse Ox 96 96 O2 Delivery Room Air Room Air 05/13/19 05/13/19 05/13/19 08:00 08:00 09:00 Temp 36.4 Pulse 65 Resp 18 B/P (MAP) 155/94 (114) Pulse Ox 96 96 98 O2 Delivery Room Air Room Air Room Air 05/13/19 00:00 Intake Total 2150 ml Balance 2150 ml Weight (Pounds): 218 Weight (Ounces): 0.0 Weight (Calculated Kilograms): 98.969397 Constitutional: appears stated age, AAO x 3; No apparent distress; well- developed, well-nourished Respiratory: chest is bilaterally symmetric, lungs clear to auscultation Cardiovascular: regular rate-rhythm, S1 and S2 Gastrointestional: soft, round, audible bowel sounds; No spleenomegaly Extremities: normal range of motion, non-tender, normal inspection; No clubbing, No cyanosis; no lower extremity edema bilateral; No significant edema Neurologic/Psychiatric: no motor/sensory deficits, alert, normal mood/affect, oriented x 3, power is 5/5 both on sides Skin: normal color, warm/dry; No rash, No ulcerations A/P: Assessment/Dx: Sustained monomorphic ventricular tachycardia without hemodynamic compromise, History of atrial fibrillation, History of SVT. Plan: Negative serial troponin. Coronary angiography done 05/12/2019 shows normal LV function with no CAD. Echocardiogram done 05/11/2019 showed normal LV and RV size and function. He was started on IV amiodarone overnight which resulted in significant improvement in wide complex tachycardia. Otherwise he was having numerous episodes. Longest episode was for 3 minutes. We will also change Cardizem to metoprolol. He will require cardiac MRI and an event monitor as an outpatient. We will arrange consultation with Dr. Whitten at . I will see the patient in 2-3 weeks. History of atrial fibrillation, change Cardizem to metoprolol. Full dose aspirin. SVT with aberrant conduction cannot be completely ruled out. Thank you for your consultation. Please call me if you have any questions. Georgia Posada MD, FACP, FACC, FSCAI, FHRS, CCDS Interventional Cardiology Cardiac Electrophysiology Vascular Medicine and Endovascular Interventions Clinical Quality Measures AMI/AHF: ASA po Prior to arrival: Yes (this am 81 mg. ) Vernon POSADA MD May 13, 2019 12:53
--- NOTE | 2019-05-13 14:43 | Discharge Summary ---
Discharge Summary Hospital Course Was the Problem List Reviewed?: Yes Problems/Dx: (1) SVT (supraventricular tachycardia) Status: Acute Hospital Course Date of Admission: May 11, 2019 at 13:31 Admission Diagnosis : SVT Family Physician/Provider: Wilfredo Davis MD Date of Discharge: 05/13/19 Discharge Diagnosis: SVT Hospital Course: Wilfredo Mckenna is a 53yoM with history of SVT who presented with palpitations and was found to be in SVT. He was given Cardizem and converted to NSR. He subsequently had issues with reverting back to SVT and was started on Amiodarone. He was loaded with IV and converted to oral. Cardiology was consulted and performed a left heart catheterization which was normal. He had an echocardiogram which was unrevealing. He was transitioned from Diltiazem to Metoprolol. He will follow up with Dr. Posada, cardiology, as an outpatient. Labs and Pending Lab Test: Home Meds Active Metoprolol Tartrate 50 Mg Tablet 50 Mg PO BID 30 Days Amiodarone HCl 200 Mg Tablet 200 Mg PO BID 30 Days Reported [Cbd Oil] PO DAILY Vitamin B Complex 1 Each Capsule 1 Cap PO DAILY Aspirin EC (Aspirin) 81 Mg Tablet.dr 81 Mg PO DAILY Probiotic (Lactobacillus Acidophilus) 1 Each Capsule 1 Cap PO DAILY Turmeric (Turmeric Root Extract) 538 Mg Capsule 538 Mg PO DAILY Vitamin C (Ascorbate Calcium) 500 Mg Tablet 500 Mg PO DAILY Multivitamins (Multivitamin) 1 Each Tablet 1 Tab PO DAILY Cyclobenzaprine HCl 10 Mg Tablet 10 Mg PO TID PRN Amlodipine Besylate 2.5 Mg Tablet 2.5 Mg PO DAILY Assessment/Pt Instructions Take medications as prescribed. Begin taking Amiodarone and Metoprolol. Follow up with Dr. Posada, cardiology. Discharge Planning: <30 minutes discharge planning Discharge Instructions Discharge Diet: No Restrictions Activity as Tolerated: Yes Pneumonia Vaccine Order Indica: Yes Orders & Referrals Cardiology Discharge Physical Examination Vital Signs Vital Signs Date Time Temp Pulse Resp B/P (MAP) Pulse Ox O2 Delivery O2 Flow Rate FiO2 05/13/19 09:00 98 Room Air 05/13/19 08:00 36.4 65 18 155/94 (114) General Appearance: No Apparent Distress, WD/WN Respiratory: Lungs Clear, Normal Breath Sounds, No Respiratory Distress Cardiovascular: Regular Rate, Rhythm, No Edema, No Murmur Gastrointestinal: Normal Bowel Sounds, Non Tender, Soft Extremity: Normal Inspection, No Pedal Edema Skin: Normal Color, Warm/Dry Neurologic/Psychiatric: Alert; No Disoriented Allergies: Coded Allergies: No Known Drug Allergies (Unverified , 05/11/19) Discharge Summary Date of Admission May 11, 2019 at 13:31 Date of Discharge May 13, 2019 at 10:58 Discharge Date: May 13, 2019 Discharge Time: 14:38 Admission Diagnosis SVT Consults/Procedures Consulations Cardiology Procedures Left heart catheterization Discharge Diagnosis SVT (1) SVT (supraventricular tachycardia) Status: Acute Clinical Quality Measures AMI/AHF: ASA po Prior to arrival: Yes (this am 81 mg. ) DVT/VTE Risk/Contraindication: RFS Level Per Nursing on Admit: 0=No Risk/No VTE PPX EDE MARTINEZ MD May 13, 2019 14:42
== END 2019-05-13 10:58 | disposition home or self-care (01) | DRG 287 ==
LOC: EDUNIT# 11:49 → ER 11:50 → CSD 13:31
PROVIDERS: ADMIT Internal Medicine; ATTEND Internal Medicine
PROC: 4A023N7 Measurement of Cardiac Sampling and Pressure, Left Heart, Percutaneous Approach (ICD-10-PCS; principal; 2019-05-12)
PROC: B2111ZZ Fluoroscopy of Multiple Coronary Arteries using Low Osmolar Contrast (ICD-10-PCS; 2019-05-12)
PROC: B2151ZZ Fluoroscopy of Left Heart using Low Osmolar Contrast (ICD-10-PCS; 2019-05-12)
DX: I47.1 Supraventricular tachycardia (principal); I47.2 Ventricular tachycardia; I48.91 Unspecified atrial fibrillation; I10 Essential (primary) hypertension
CPT/HCPCS: 36415; 80053; 83735; 84484; 85025; 85610; 85730; 93005; 93306; 93458; 96374

== ENCOUNTER 2019-05-13 11:18 | Outpatient (RCR) | payer BC ==
[~2019-05-13 11:18] MED LIST changes: +AMIO200T4 PO; +AMLO2.5T4 PO; +ASCO-262 PO; +ASPI-983 PO; +CBD OIL PO; +CYCL10TA9 PO; +DILT360C36 PO; +LACT1CAP62 PO; +METO50TA15 PO; +MULT1TAB69 PO; +TURM538C PO; +VITA1CAP PO; -methylPREDNISolone 80 MG/ML (DEPO MEDROL) VIAL ONE
--- NOTE | 2019-05-13 12:12 | NUR ---
RD ASSESSMENT PMHx: HTN, SVT, afib PT INTERACTION: Pt was awake and pleasant during nutrition assessment. Pt states current appetite is good and has been for the past few weeks. Pt states no current issues with n/v/d/c at this time, and that his last BM was this AM. Pt states no reent weight changes. Note unable to determine recent wt hx, per chart review. ABNORMAL NUTRITION-RELATED LAB VALUES: glu 107 (H); Hct 39 (L); Pro 6.1 (L) Est. kcal needs: 6835-1722 kcal (20-25 kcal/kg) Est. Pro needs: 75-94 g Pro (0.8-1.0 g Pro/kg) PES STATEMENT: No nutrition diagnosis at this time. INTERVENTION: Continue with current diet order of CHO 60g/m 3snack. MONITOR/EVALUATE: PO Intake, Weight status, Hydration status, Lab values. Fang Bonner, MS, RD [phone]
[2019-06-04] MEDS ORDERED: HEParin 1000 UNIT/ML (10ML VIAL) FOR BOLUS ONE (17:25)
[2019-06-04] MEDS ORDERED: TICAGRELOR 90 MG TABLET (BRILINTA) PO ONE (17:25)
[2019-06-04] MEDS ORDERED: ASPIRIN 81 MG CHEW (CHILDREN'S ASA) ONE (17:26)
[2019-06-04] MEDS ORDERED: NITRO DRIP 25000 MCG/D5W 0 ML IV ONE (17:30)
== END 2019-08-11 | disposition home or self-care (01) ==
LOC: CARD 11:18
PROVIDERS: ATTEND Internal Medicine
DX: I47.2 Ventricular tachycardia (principal)